=== PATIENT | male | born 1990 | race Caucasian/White ===

== ENCOUNTER 2021-11-14 09:10 | Emergency (ER) | payer OTHER ==
[~2021-11-14] VITALS: Ht 172.7 cm; Wt 59.8 kg
[2021-11-14 09:49] VITALS: BP 153/100
[2021-11-14] MEDS ORDERED: LIDOcaine 1% 30ml preserv. free vial IJ STA (11:24)
== END 2021-11-14 12:20 | disposition home or self-care (01) ==
LOC: ER 09:11
DX: S60.031A Contusion of right middle finger without damage to nail, initial encounter (principal); X58.XXXA Exposure to other specified factors, initial encounter; Y93.89 Activity, other specified; Y92.89 Other specified places as the place of occurrence of the external cause; Y99.8 Other external cause status
CPT/HCPCS: 11740; 73140; 99284